=== PATIENT | female | born 1990 | race Two or more races ===

== ENCOUNTER → 2017-03-24 | Outpatient (REF) | payer OTHER | LOC: M SFHCLERA 08:45 | PROVIDERS: ATTEND Nurse Practitioner Family | DX: N30.01 Acute cystitis with hematuria (principal) ==

== ENCOUNTER 2017-08-29 03:30 | Inpatient (IN) | payer OTHER ==
[2017-08-29] MEDS ORDERED: LR 1,000 ML IV (06:14)
[2017-08-29 06:40] LABS: HEMATOCRIT 39.4 % (36.0-47.0); HEMOGLOBIN 13.6 g/dl (12.0-16.0); MEAN CORPUSCULAR HEMOGLOBIN 34.1 pg (27.0-33.0); MEAN CORPUSCULAR HGB CONC 34.5 g/dl (32.0-36.5); MEAN CORPUSCULAR VOLUME 98.7 fl (80.0-96.0); PLATELET COUNT, AUTOMATED 180 10^3/uL (150-450); RED BLOOD COUNT 3.99 10^6/uL (4.00-5.40); RED CELL DISTRIBUTION WIDTH 12.1 % (11.5-14.5); WHITE BLOOD COUNT 15.4 10^3/uL (4.0-10.0)
[2017-08-29] MEDS ORDERED: FENTANYL 2MCG/ML ROPIVACAINE 0.2% IN 0.9% NACL 200ML IVBAG As Ordered (06:52)
[2017-08-29] MEDS ORDERED: EPIDURAL/PCA KEYS XX (08:30)
[2017-08-29] MEDS ORDERED: REFRIGERATOR IV KEYS XX (08:30)
[2017-08-29] MEDS ORDERED: EPIDURAL COMMENT XX (08:30)
[2017-08-29] MEDS ORDERED: ePHEDrine INJ 50 MG/ML VIAL IV (08:30)
[2017-08-29] MEDS ORDERED: FENTANYL/ROPIVACAINE/NACL BAG 200 ML EPIDURAL (08:30)
[2017-08-29] MEDS ORDERED: LACTATED RINGER'S 1000 ML IV (08:30)
[2017-08-29] MEDS ORDERED: ONDANSETRON 4MG/2ML VIAL (J2405) IV ×2 (08:30→11:45)
[2017-08-29] MEDS ORDERED: diphenhydrAMINE INJ 50MG/ML VIAL (J1200) IV (08:30)
[2017-08-29] MEDS ORDERED: NALOXONE INJ 0.4 MG/1 ML VIAL (J2310) IV (08:30)
[2017-08-29] MEDS ORDERED: OXYTOCIN 30 UNITS IN 0.9% NaCl 500ML IV BAG (J2590) As Ordered (08:38)
[2017-08-29] MEDS: PRENATAL VITAMINS CHEWABLE TABLET PO (09:00)
[2017-08-29] MEDS: DOCUSATE SODIUM 100 MG CAP PO ×2 (09:00→21:00)
[2017-08-29] MEDS: OXYTOCIN DRIP 30 UNITS in APPROPRIATE DILUENT 1 EA IV (11:09)
[2017-08-29] MEDS ORDERED: METHYLERGONOVINE MALEATE 0.2 MG TAB PO (11:45)
[2017-08-29] MEDS ORDERED: PROMETHAZINE 25 MG TAB PO (11:45)
[2017-08-29] MEDS ORDERED: ACETAMINOPHEN 500 MG TAB PO (11:45)
[2017-08-29] MEDS: MEASLES,MUMPS,RUBELLA VACCINE INJ (MMR-II) (90707) SC (13:53)
[2017-08-29] MEDS: RHOGAM 300 MCG (1500 IU) INJ (J2790) IM (13:53)
[2017-08-29] MEDS: DIBUCAINE 1% OINTMENT 30GM TOP (21:00)
[2017-08-30] MEDS: IBUPROFEN 800 MG TAB PO ×2 (00:15→08:33)
[2017-08-30] MEDS: PRENATAL VITAMINS CHEWABLE TABLET PO (08:32)
[2017-08-30] MEDS: DOCUSATE SODIUM 100 MG CAP PO (08:32)
== END 2017-08-30 15:15 | disposition home or self-care (01) | DRG 775 ==
LOC: M LDO 03:30 → M LDI 06:13 → M OBS 14:09
PROVIDERS: Obstetrics & Gynecology
PROC: 10E0XZZ Delivery of Products of Conception, External Approach (ICD-10-PCS; principal; 2017-08-29)
PROC: 0HQ9XZZ Repair Perineum Skin, External Approach (ICD-10-PCS; 2017-08-29)
DX: O48.0 Post-term pregnancy (principal); Z37.0 Single live birth; Z3A.40 40 weeks gestation of pregnancy; O69.82X0 Labor and delivery complicated by other cord entanglement, without compression, not applicable or unspecified; O70.0 First degree perineal laceration during delivery

== ENCOUNTER → 2017-09-24 | Outpatient (REF) | payer OTHER | LOC: M SFHCLERA 19:32 | DX: J00 Acute nasopharyngitis [common cold] (principal) ==